=== PATIENT | female | born 1955 | race African-American/Black ===

== ENCOUNTER 2017-02-28 13:40 | Emergency (ER) | payer OTHER ==
[2017-02-28 13:46] VITALS: BP 168/84; PULSE 104; TEMP 98.5; BMI 25.0
--- NOTE | 2017-02-28 14:32 | PDOC ---
History of Present Illness - General Chief Complaint: Pain Stated Complaint: THROAT PAIN Time Seen by Provider: 02/28/17 13:55 History Source: Patient Exam Limitations: No Limitations - History of Present Illness Initial Comments: 02/28/17 14:25 61-year-old female complaints of left lower quadrant dental pain for the past 2 days now with mild swelling to the area. Patient states has history of diabetes and was told by the oral surgeon that she needs to have her Leukos under control prior to removal of her decayed teeth. Patient states last BGM is 235 and denies polyuria or polyphasia, polydipsia. Patient denies fever, chills, cough, difficulty swallowing, or neck stiffness. Patient does smoke daily Timing/Duration: other Severity: moderate Associated Symptoms: reports: other Past History - Travel Traveled outside of the country in the last 30 days: No - Past Medical History Allergies/Adverse Reactions: Allergies Allergy/AdvReac Type Severity Reaction Status Date / Time morphine Allergy Mild rash/hives Verified 02/28/17 13:46 Penicillins Allergy Mild Hives Verified 02/28/17 13:46 amlodipine besylate Allergy Verified 02/28/17 13:46 [From Lotrel] benazepril HCl [From Lotrel] Allergy Verified 02/28/17 13:46 cephalexin monohydrate Allergy Verified 02/28/17 13:46 [From Keflex] diazepam [From Valium] Allergy Verified 02/28/17 13:46 vancomycin Allergy Verified 02/28/17 13:46 Home Medications: Ambulatory Orders Insulin Lispro Protamin/Lispro [Humalog Mix 75-25 Vial] 100 unit SQ AC 09/08/15 Asthma: Yes Cardiac Disorders: Yes (?MVP VS ?HEART MURMUR) CVA: Yes COPD: Yes Diabetes: Yes Disorders: Yes (CHRONIC RENAL DISEASE) HTN: Yes Kidney Stones: (CHRONIC RENAL DISEASE) - Surgical History Abdominal Surgery: Yes (HERNIA) Appendectomy: Yes - Suicide/Smoking/Psychosocial Hx Smoking History: Current every day smoker Have you smoked in the past 12 months: Yes Number of Cigarettes Smoked Daily: 10 Information on smoking cessation initiated: No 'Breaking Loose' booklet given: 06/07/13 Hx Alcohol Use: No Drug/Substance Use Hx: No Substance Use Type: None Hx Substance Use Treatment: No Patient Lives Alone: No Lives with/in: spouse/SO Review of Systems - Review of Systems Able to Perform ROS?: Yes Constitutional: No: Symptoms Reported HEENTM: Yes: Dental Problems Respiratory: No: Symptoms reported Cardiac (ROS): No: Symptoms Reported Musculoskeletal: No: Symptoms Reported Integumentary: Yes: Lumps Neurological: No: Symptoms reported *Physical Exam - Vital Signs Last Vital Signs Temp Pulse Resp BP Pulse Ox 98.5 F 104 H 20 168/84 97 02/28/17 13:43 02/28/17 13:43 02/28/17 13:43 02/28/17 13:43 02/28/17 13:43 - Physical Exam General Appearance: Yes: Nourished, Appropriately Dressed. No: Apparent Distress HEENT: positive: Other (Noted decayed teeth to LLQ and LUQ. No abscess noted no enlarged submental or submandibular lymph nodes. Left ear canal and tympanic membrane intact). negative: Pharyngeal Erythema Respiratory/Chest: positive: Lungs Clear, Normal Breath Sounds. negative: Respiratory Distress, Accessory Muscle Use Cardiovascular: positive: Regular Rhythm, Regular Rate. negative: Murmur Integumentary: positive: Normal Color, Warm, Moist Medical Decision Making - Medical Decision Making 02/28/17 14:39 Patient with left upper quadrant and left lower quadrant decayed teeth without obvious signs of abscess. Patient will be given a prescription of clindamycin due to complaints and physical exam. Patient is to follow-up with oral surgeon at [facility] next week. *DC/Admit/Observation/Transfer Diagnosis at time of Disposition: Dental abscess - Discharge Dispostion Disposition: HOME Condition at time of disposition: Good - Referrals - Patient Instructions Printed Discharge Instructions: DI for Tooth Decay Additional Instructions: Please take antibiotics as prescribed in May take Percocet as needed for pain. Please follow-up with oral surgeon and please follow up with your primary care physician. - Post Discharge Activity
== END 2017-02-28 14:51 | disposition home or self-care (01) ==
LOC: JERFT 13:40
DX: K02.9 Dental caries, unspecified (principal); K04.7 Periapical abscess without sinus; E11.9 Type 2 diabetes mellitus without complications; Z79.4 Long term (current) use of insulin; N28.89 Other specified disorders of kidney and ureter; I10 Essential (primary) hypertension; Z86.73 Personal history of transient ischemic attack (TIA), and cerebral infarction without residual deficits
CPT/HCPCS: 99281-25